=== PATIENT | male | born 1950 | race Caucasian/White ===

== ENCOUNTER 2023-05-14 10:59 | Outpatient (OUT) | payer MEDICARE, SELFPAY ==
--- NOTE | 2023-05-14 11:04 | ECG_ITS ---
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
--- NOTE | 2023-05-14 11:43 | P.GSHP_ITS ---
History of Present Illness History of Present Illness Chief complaint: left hallux rigidus, hammertoes Narrative: Patient presents for preadmission testing. The patient reports a long history of foot pain with toe deformities. Patient states it is worse in his left foot, particularly in the great toe, his pain is worse after certain activities, and the pain is sharp at times. The patient states he doesn't currently take any medications to help his discomfort. He denies numbness, tingling, weakness, or any other complaints. Review of Systems ROS Narrative REVIEW OF SYSTEMS: Negative except as stated in HPI, ten or more systems reviewed. Constitutional: No fever , chills, weakness ENT: No sore throat or epistaxis Cardiovascular: No edema, chest pain, palpitations, or activity intolerance Respiratory: No shortness of breath, cough, or wheezing Gastrointestinal: No abdominal pain, constipation, diarrhea, or vomiting Genitourinary: No dysuria or hematuria Neurological: No numbness, tingling, weakness, or headache Psychiatric: No mood changes PFSH PFSH Medical History (Updated 05/14/23 @ 11:25 by Carol Castellanos NP) Surgical History (Updated 05/14/23 @ 11:47 by Carol Castellanos NP) Family History (Updated 05/14/23 @ 11:24 by Carol Castellanos NP) Other Family history of heart disease Family history of kidney cancer Family history of myocardial infarction Social History (Updated 05/14/23 @ 11:18 by Carol Castellanos NP) Within the past year, how often did you have a drink containing alcohol: monthly or less Smoking status: Never smoker Non-prescribed substance use: denies use Highest level of school completed/degree received: high school graduate Meds Home Medications and Allergies Home Medications Medication Instructions Recorded Confirmed Type aspirin 81 mg tablet,delayed 81 mg PO DAILY 05/14/23 05/14/23 History release (Adult Aspirin Regimen) atorvastatin 20 mg tablet 20 mg PO DAILY 05/14/23 05/14/23 History coenzyme Q10 30 mg capsule (Co 30 mg PO DAILY 05/14/23 05/14/23 History Q-10) hydrochlorothiazide 25 mg tablet 25 mg PO DAILY 05/14/23 05/14/23 History omeprazole 40 mg capsule,delayed 40 mg PO DAILY 05/14/23 05/14/23 History release vitamin A-vitamin C-vit E-min 1 tab PO DAILY 05/14/23 05/14/23 History tablet (Ocutabs tablet) Allergies Allergy/AdvReac Type Severity Reaction Status Date / Time No Known Drug Allergies Allergy Verified 05/14/23 11:17 Exam Narrative Exam Narrative: Constitutional: Awake, alert, comfortable, well-appearing, nontoxic, interactive, vital signs as charted Head: Normocephalic, atraumatic Neck: Supple, normal appearance, normal range of motion, no meningeal signs, no lymphadenopathy Respiratory: No respiratory distress, breath sounds clear Cardiovascular: Regular rate and rhythm, strong and regular heart tones Musculoskeletal: Obvious hallux valgus deformity left great toe, with hammertoes two through five, limited range of motion, good capillary refill, sensation intact Skin: No rashes or induration, no lesions, only visible skin inspected Neuro: No neurological deficits, normal sensation Psychiatric: Oriented ?3, normal affect Assessment and Plan Assessment and Plan (1) Hallux rigidus, left foot: (2) Hammertoe of left foot: Plan Left foot 1st MPJ fusion, hammertoe repair toes two through five, Norma osteotomy of 2nd and possible 3rd metatarsal, tailor's bunionectomy scheduled with Dr. Rainer pardo 05/20/2023.
[2023-05-14 12:39] LABS: Anion Gap 10.4; BUN Creatinine Ratio 24.1; Carbon Dioxide 27.5 mmol/L (21.0-32.0); Chloride 103 mmol/L (98-107); Estimated GFR (African America >60 (>=60); Estimated GFR (Non-African Ame >60 (>=60); Glucose 97 mg/dL (74-106); Potassium 3.9 mmol/L (3.5-5.1); Sodium 137 mmol/L (136-145)
== END 2023-05-14 11:00 | disposition home or self-care (01) ==
PROVIDERS: PCP Internal Medicine; Visit Provider Podiatrist Foot & Ankle Surgery
DX: Z01.818 Encounter for other preprocedural examination (principal); Z01.810 Encounter for preprocedural cardiovascular examination; Z01.812 Encounter for preprocedural laboratory examination; M20.22 Hallux rigidus, left foot; M20.42 Other hammer toe(s) (acquired), left foot; I10 Essential (primary) hypertension
CPT/HCPCS: 36415; 80048; 93005; G0463

== ENCOUNTER 2023-05-20 06:13 | Day surgery (SDC) | payer MEDICARE, SELFPAY ==
[2023-05-14 11:19] VITALS: BP 132/81; PULSE 96; RESP 20; TEMP 36.6; O2SAT 96; BMI 37.4
--- NOTE | 2023-05-20 | XR_ITS ---
The [address] [address] Patient Name: NIYAH DOS SANTOS MRN: [id number] date: 1950 Sex: M Assigned Patient Location: [facility] Current Patient Location: Accession/Order Number: [id number] Exam Date: 05/20/2023 07:15 Report Date: 05/21/2023 09:52 At the request of: KAJAL HOBBS Procedure: XR foot LT 2V PROCEDURE: XR foot LT 2V HISTORY: INTRA OP IMAGING ; first metatarsal phalangeal joint fusion COMPARISON: XR foot left 10/28/2022 FINDINGS: BONES:Multiple intraoperative images demonstrate fusion of the first metatarsophalangeal joint via dorsal plate and screws. Single screw within head of second metatarsal. SOFT TISSUES:Expected intraoperative findings. EFFUSION:None visible. OTHER: Negative. XR/XR foot LT 2V IMPRESSION: 1. Mechanical fusion of the first metatarsophalangeal joint with improved alignment. Electronically authenticated by: JASPREET LUIS Date: 05/21/2023 09:52
[2023-05-20 06:25] LABS: Basophils Percent Auto 0.4 % (0.2-2.0); Eosinophils Absolute Auto 0.2 10^3/uL (0.0-0.7); Eosinophils Percent Auto 2.1 % (0.9-7.0); Hematocrit 45.5 % (42.0-54.0); Hemoglobin 15.3 g/dL (14.0-18.0); Immature Granulocytes Abs Auto 0.03 10^3/uL (0.00-0.03); Immature Granulocytes Pct Auto 0.4 % (0.0-0.5); Lymphocytes Absolute Auto 1.3 10^3/uL (1.2-3.8); Lymphocytes Percent Auto 14.9 % (20.5-60.0); Mean Corpuscular HGB Conc 33.6 g/dL (29.9-35.2); Mean Corpuscular Hemoglobin 30.1 pg (25.9-34.0); Mean Corpuscular Volume 89.6 fL (80.0-94.0); Monocytes Absolute Auto 0.8 10^3/uL (0.3-0.8); Monocytes Percent Auto 9.1 % (1.7-12.0); Neutrophils Absolute Auto 6.3 10^3/uL (1.4-6.5); Neutrophils Percent Auto 73.1 % (43.0-75.0); Platelet Count 183 10^3/uL (150-450); Red Blood Count 5.08 10^6/uL (4.70-6.10); Red Cell Distribution Width 13.2 % (11.0-15.0); White Blood Count 8.5 10^3/uL (4.0-11.0)
[2023-05-20 06:35] LABS: Glucometer 124 mg/dL (74-106)
[2023-05-20 06:38] VITALS: BP 137/71; PULSE 67; RESP 16; TEMP 36.4; O2SAT 97; BMI 37.4
[2023-05-20] MEDS: LACTATED RINGER'S SOLUTION 1,000 ML 50 ML IV ×2 (06:50→08:32)
--- NOTE | 2023-05-20 09:27 | PC.NURSE ---
time out performed as documented. applied 2L O2 via nasal cannula per policy and then positioned per anesthesia. saphineous block beganat 07 and was completed at 0718,popliteal block began at 07 and ended at 07. pt tolerated procedure well. bed in lowest position with siderails up and call light within reach. pts vitals were monitored throughout procedure and will be monitored until pt is taken back to the OR.
--- NOTE | 2023-05-20 10:25 | XR_ITS ---
The [address] [address] Patient Name: NIYAH DOS SANTOS MRN: [id number] date: 1950 Sex: M Assigned Patient [facility] Current Patient Location: [facility] Accession/Order Number: [id number] Exam Date: 05/20/2023 11:00 Report Date: 05/21/2023 09:58 At the request of: DOMINIQUE SAN Procedure: XR foot LT min 3V PROCEDURE: XR foot LT min 3V HISTORY: post-op first metatarsophalangeal joint fusion COMPARISON: XR foot left 05/20/2023 intraoperative images FINDINGS: BONES:Improved alignment and mechanical fusion of first metatarsophalangeal joint via dorsal plate and screws. Single screw within second metatarsal head. No hardware fracture or bone fracture. SOFT TISSUES:Mild soft tissue swelling. Images were obtained through cast material. EFFUSION:None visible. OTHER: Negative. XR/XR foot LT min 3V IMPRESSION: 1. Stable surgical changes of left foot without evidence of hardware failure or change in alignment compared to intraoperative images. Electronically authenticated by: JASPREET LUIS Date: 05/21/2023 09:58
[2023-05-20 10:54] VITALS: BP 141/86; PULSE 85; RESP 11; TEMP 37.1; O2SAT 93
[2023-05-20 11:11] LABS: Glucometer 151 mg/dL (74-106)
--- NOTE | 2023-05-20 11:16 | PC.NURSE ---
PATIENT IS AWAKE AND TOES ARE PINK AND WARN, HE CAN NOT FEEL HIS TOES.
[2023-05-20 11:23] VITALS: BP 134/90; PULSE 63; RESP 16; O2SAT 94
--- NOTE | 2023-05-20 11:45 | PC.NURSE ---
TOES ARE WARM AND PINK. PATIENT DENIES ANY PAIN AT THIS TIME.
[2023-05-20 11:53] VITALS: BP 136/79; PULSE 79; RESP 18; O2SAT 95
--- NOTE | 2023-05-20 11:58 | PC.NURSE ---
PATIENT IS CURRENTLY UP IN A CHAIR WITH FOOT ELEVATED ON PILLOW WITH ICE PACK UNDERNEATH IT. PATIENT DENIES PAIN AND IS TOLERATING SITTING IN CHAIR VERY WELL.
[2023-05-20 12:23] VITALS: BP 134/78; PULSE 69; RESP 18; O2SAT 94
--- NOTE | 2023-05-20 13:25 | P.ORON_ITS ---
Brief Operative Note Date of procedure: 05/20/23 Pre-op diagnosis: Left HAV, hammertoes, tailor's bunion Post-op diagnosis: other (left hallux valgus, hammertoes 2-5, pre-dislocation syndrome 2nd metatarsal phalangeal joint, subluxation of 2nd and 3rd metatarsal phalangeal joints, tailor's bunion) Procedure: procedure performed: Left 1st metatarsal phalangeal joint fusion, Norma osteotomy 2nd metatarsal, tailors bunionectomy, correction of hammertoes with PIPJ ar throplasty of toes 2, 3, 4 & 5; extensor tendon lengthening of 2nd & 3rd metatarsal phalangeal joints; application of short leg splint, intraoperative fluoroscopy examination intraoperative findings: consistent with diagnosis of severe hallux valgus with mild to moderate arthritis of 1st metatarsophalangeal joint. Severe contractures of the 2nd and 3rd toes leading to subluxation dorsally of metatarsal phalangeal joints. Rigid contractures at PIPJ's of toes two through five. Bone quality within normal limits PROCEDURE IN DETAIL: Patient was identified in pre op and consent was reviewed. Correct side and site were identified and marked. Pre-op antibiotics were started. Patient was brought to OR suite and place on table in a supine position. General anesthesia was administered. A tourniquet was applied. Operative extremity was prepped and draped in usual sterile fashion. Formal time-out was performed and the foot/ankle were exsanguinated and tourniquet inflated. Incision created over dorsal aspect of the 1st MPJ. Bleeders coagulated. EHL protected throughout the procedure. Capsulotomy performed and McGlammry elevator inserted into 1st MPJ. Guide Pin place in 1st metatarsal head. Conical reamers used on 1st metatarsal head to remove cartilage and subchondral bone. Guide pin removed. Conical reamers used on proximal phalanx in a similar manner. 2.0 mm drill used to on each side of the joint. The site was irrigated. 1cc of bone allograft (Sparc) was then packed into the fusion site. A stab incision was placed on the medial aspect of the hallux and blunt dissection down to the proximal phalanx base was performed. A guide wire was then used to pin the MPJ in a rectus position under fluoroscopic guidance. then an additional stab incision was placed on the lateral aspect of the hallux and blunt dissection was taken down to bone followed by a 2nd guidewire placed crossing the 2nd. Position was checked both on the table and under fluoroscopy. A saw was used to contour the dorsal aspect of the 1st metatarsal and proximal phalanx to accommodate plate fixation. A 3.[address] was place over the fusion site and temporarily fixed. Then company pilot holes were drilled for locking 3.5 mm screws which were measured and placed according to the manufactor's standard directions. Again position was checked under fluoroscopy as well as on the table. Temporary fixation was removed and additional screws were placed. 3.5 mm cannulated headed screws were inserted over the previously placed guide wires accordingly. Again position of the great toe and hardware placement were checked on the table and under fluoroscopy. The surgical site was irrigated with copious amounts of sterile saline. A dorsal incision over the 2nd digit and extended over the 2nd metatarsal was undertaken. They show sharp and blunt dissection gained access to the proximal phalanx head which was exposed and then removed with the sagittal saw. The extensor tendon was protected throughout the procedure and sharp and blunt dissection exposed the 2nd metatarsal phalangeal joint. A McGlammry elevator was utilized to expose the 2nd metatarsal head and a sagittal saw was used to create an osteotomy parallel to the weightbearing surface of the foot. The metatarsal head was then translated proximally and temporarily fixated with a K wire and the elevator was removed. Position was checked under fluoroscopy followed by a 2.0 mm snap off screw which was placed from a dorsal plantar direction. A rongeur was used to remove the dorsal cortical shelf. Temporary fixation was removed. Surgical site was irrigated with copious amounts of sterile saline. With attention to the 3rd digit a dorsal incision was created over the PIPJ. Sharp and blunt dissection down to the extensor tendon was performed. The tendon was incised transversely then reflected proximally. A sagittal saw was used to remove the proximal phalanx head. The site was flushed with sterile saline. With attention to the 4th digit a dorsal incision was created over the PIPJ. Sharp and blunt dissection down to the extensor tendon was performed. The tendon was incised transversely then reflected proximally. A sagittal saw was used to remove the proximal phalanx head. The site was flushed with sterile saline. With attention to the 5th digit a semi-elliptical dorsal incision was created over the PIPJ. Sharp and blunt dissection down to the extensor tendon was performed. The tendon was incised transversely then reflected proximally. A sagittal saw was used to remove the proximal phalanx head. The site was flushed with sterile saline. The tendons of 4th and 5th toes were repaired with absorbable suture. incision over the dorsal lateral aspect of the 5th metatarsophalangeal joint was performed comminution sharp and blunt dissection gained access to the joint and capsulotomy was performed exposing the lateral eminence of the 5th metatarsal. The osseous prominence was then removed with a sagittal saw then contoured with a hand rasp. Surgical site was irrigated with copious saline and the incision was closed in layers. The incisions from the 4th and 5th toes were also closed in layers as well as the incision of the 1st MPJ fusion after irrigation of all surgical sites. Attempt was made to directly repair the extensor tendons of the 2nd and 3rd toes however direct repair would have placed dorsal contracture on the toes therefore each tendon was lengthened in a Z fashion then repaired with absorbable suture. Surgical sites were irrigated copiously saline and incisions were closed in layers. Fluoroscopy confirmed correction of forefoot deformities and proper hardware placement. The tourniquet was deflated and a prompt hyperemic response was noted. A dry sterile dressing consisting of Xeroform on the incisions followed by 4 x 4 gauze, ABDs, and Kerlix were applied. Multiple layers of cast padding were then applied to ensure all bony prominences were well-padded. A plaster posterior splint was then applied which was held in place by Leobardo wraps. Capillary refill time to all digits was evaluated and had appropriate response. POSTOPERATIVE PLAN: Discharge home under family's care Post op instructions provided verbally and written prescription(s) were placed in chart NWB operative foot/ankle x_1_ wks Follow-up in 1 week Implants: Medline Anesthesia: other (general & regional) Surgeon: Yong Sanchez Behavioral Analyst: Won Villasenor Estimated blood loss (mL): 10 Pathology: none sent Condition: stable Disposition: PACU
== END 2023-05-20 12:23 | disposition home or self-care (01) ==
PROVIDERS: Anesthesiology; PCP Internal Medicine; Visit Provider Podiatrist Foot & Ankle Surgery
PROC: (CPT 28110; principal; 2023-05-20 07:30)
DX: M20.12 Hallux valgus (acquired), left foot (principal); M20.42 Other hammer toe(s) (acquired), left foot; M21.622 Bunionette of left foot; M25.872 Other specified joint disorders, left ankle and foot; M20.22 Hallux rigidus, left foot; M20.5X2 Other deformities of toe(s) (acquired), left foot; Z79.82 Long term (current) use of aspirin; Z79.899 Other long term (current) drug therapy; Z87.891 Personal history of nicotine dependence
CPT/HCPCS: 28110; 28208; 28234; 28285 ×4; 28308; 28750; 36415; 64445; 64450; 73620; 73630; 76000; 76942; 82948; 85025; C1713; J2704

== ENCOUNTER 2023-06-01 15:55 | Emergency (ER) | payer MEDICARE, SELFPAY ==
[2023-06-01 16:08] VITALS: BMI 25.8
--- NOTE | 2023-06-01 16:27 | ED_ITS ---
HPI - General Adult General Chief complaint: Cardiac Arrest/CPR Stated complaint: OTHER Time Seen by Provider: 06/01/23 16:10 Source: family and other Source information: ems staff Mode of arrival: ambulance Limitations: other Limitations comment: full arrest History of Present Illness HPI narrative: Patient is a 73-year-old male who is presenting to the Emergency Room in cardiopulmonary arrest. Patient has a history of cholesterol, acid reflux, but overall is rather healthy. Patient lives at home with his . Patient exercises often and works at [employer]. Patient had a surgery approximately [address] Sanchez on his left foot. Patient was somewhat inactivity for surgery and after surgery. Patient was so happy because today he has been placed in a walking boot and is able to start moving around more. Patient has no cardiac history that we are aware of. No blood clot history where aware. Patient went to podiatry office today and was placed in a walking member. Patient went home and was feeling very lightheaded, dizzy, and had several episodes of nausea and bilious vomiting. Patient had fallen on the floor, no other blood thinners that we are aware of. Patient's wanted to call 911, patient did not want the ambulance called. Patient was able to scoot on the floor and get up into a chair. this occurred approximately 12:30 PM. Patient patient was tired, he had taken a nap. prior to arrival, patient was able to get up out of the chair and was walking, patient's was in the bedroom. Patient started gasping for air and was having a very difficult time breathing. Patient was sat in a chair with help, and then patient became unresponsive. EMS and arrives. Patient had questionable rhythm per EMS. Please refer to the EMS documentation, is unclear what or if any intervention occurred prior to arrival. I met the patient and EMS In the ambulance bay... No CPR was in place. Once patient was removed from the ambulance, I asked EMS paramedics if they had captured ROSC Or does he have a pulse or what rhythm is the patient in, and they stated no. EMS stated that the Patient had no shockable rhythm. I felt eliane harrison's carotid pulse which was not present. Eye started CPR in the ambulance bay while we were transporting patient into room 5. I started one-handed CPR on this patient As I was trying to assist with transferring patient into the room and holding his right arm because it was falling off the cart and on the ground. He was brought in quickly into room 5 where ACLS measures were quickly in place. Nurse Alberta VANCE relieved me, and got up on the bed immediately and started CPR. no IV or IO was established. There is no bag valve mask in place by EMS staff, it does not appear the patient is breathing, EMS staff reported that he had been gasping for air. . All systems are negative except as noted/marked. . Nurses note and vital signs reviewed and patient is not hypoxic. General: The patient arrived in cardiopulmonary arrest. patient is wearing a walking boot to the left foot/ankle. Skin: cool, slightly mottled. There is no rash noted. No petechiae, purpura. Head: Normocephalic, atraumatic Eye: pupils are fixed and dilated, 6 mm bilateral. Ears, Nose, Mouth, and Throat: oral mucosa is dry Cardiovascular: no pulse, no heartbeat her initially Respiratory: patient is cardiopulmonary arrest, assistance with breathing was done by bag, valve, mass Has started in room 5. GI: soft, mild distention, Neurological: A&O x0, GCS 3 Related Data Home Medications Medication Instructions Recorded Confirmed aspirin 81 mg tablet,delayed 81 mg PO DAILY 05/14/23 05/20/23 release (Adult Aspirin Regimen) atorvastatin 20 mg tablet 20 mg PO DAILY 05/14/23 05/20/23 coenzyme Q10 30 mg capsule (Co 30 mg PO DAILY 05/14/23 05/20/23 Q-10) hydrochlorothiazide 25 mg tablet 25 mg PO DAILY 05/14/23 05/20/23 omeprazole 40 mg capsule,delayed 40 mg PO DAILY 05/14/23 05/20/23 release vitamin A-vitamin C-vit E-min 1 tab PO DAILY 05/14/23 05/20/23 tablet (Ocutabs tablet) Previous Rx's Medication Instructions Recorded alendronate 70 mg tablet (Fosamax) 70 mg PO QWEEK fusion 12 weeks #12 05/20/23 tabs cefadroxil 500 mg capsule 500 mg PO BID 10 days #20 caps 05/20/23 cholecalciferol (vitamin D3) 50 50 mcg PO QDAY 3 months #90 [facility] 05/20/23 mcg (2,000 unit) capsule (Vitamin D3) ondansetron 4 mg disintegrating 4 mg PO QDAY PRN nausea and 05/20/23 tablet vomiting 3 days #6 tabs sennosides 8.6 mg tablet (senna) 8.6 mg PO BID PRN constipation 3 05/20/23 days #6 tabs Allergies Allergy/AdvReac Type Severity Reaction Status Date / Time No Known Drug Allergies Allergy Verified 05/14/23 11:17 [facility] Medical History (Updated 05/14/23 @ 11:25 by Carol Castellanos NP) Surgical History (Updated 05/14/23 @ 11:47 by Carol Castellanos NP) Family History (Updated 05/14/23 @ 11:24 by Carol Castellanos NP) Other Family history of heart disease Family history of kidney cancer Family history of myocardial infarction Social History (Updated 05/14/23 @ 11:18 by Carol Castellanos NP) Within the past year, how often did you have a drink containing alcohol: monthly or less Smoking status: Never smoker Non-prescribed substance use: denies use Highest level of school completed/degree received: high school graduate Exam Constitutional Vital Signs, click to edit/add: Last Vital Signs O2 Del Method Ambu Bag 06/01/23 16:08 Course Vital Signs Vital signs: Vital Signs Oxygen Delivery Method Ambu Bag 06/01/23 16:08 Oxygen Delivery Method Ambu Bag 06/01/23 16:08 Discharge Plan Discharge Patient Disposition: Date/Time: 06/01/23 16:05 Discharge Date/Time: 06/01/23 18:36 Procedures ED Procedure Instructions Procedures Procedures: procedure note. Procedure done by . intubation. patient was preoxygenated with [id number], A 4-0 Mac blade was used. Patient's dentition are intact. A 8.0 ET tube was used. The balloon was checked with 10 cc of air prior to use. There are no holes in the balloon. Vocal cords were visualized. The ET tube was visualized passing through the vocal cords I thought initially but there is no good color exchange and patient had no breath sounds bilateral. Patient had bag valve mask for respirations continue, I then was able to use a bougie and intubate the patient successfully, 22 cm at the teeth . Patient had good color change on capnometer. Patient had equal breath sounds bilateral, good condensation in the ET tube. The ET tube was secured at 22cm at the teeth. Patient tolerated the procedure well without difficulty, no trauma was induced. dentition remained intact. Postintubation chest x-ray was done secondary to cardiopulmonary arrest and patient never had a sustainable ROSC. Procedure note: bedside cardiiac ultrasound was performed by Dr. Gray. Cardiac window was here, patient had no cardiac activity visualized by ultrasound, patient was pronounced .1605. patient was given 4 rounds of epinephrine, a dose of atropine, a dose of bicarbonate. Patient had IO established. IV fluids were running. Please see ACLS code sheet. Patient's had arrived, I had spoken to the patient's in the lobby and then brought her back into the room. I performed ultrasound the patient's hard after multiple rounds of ACLS resuscitative efforts were done. Ultrasound showed no cardiac activity, patient was pronounced at 1605. I have spoken to Dr. moore, he is going to sign certificate. Dr. moore stated that this patient is rather healthy, only sees him in the office once a year, has cholesterol history but no other significant medical history. I spoke to Dr. 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 I have spent over 60 minutes talking to multiple various family members of this patient until patient had left with the corner team. Patient has been extremely nice, very thankful, multiple updates have been given to multiple different family members, greater than 10?12 people have been in the Emergency Room. Critical care time >85 minutes exclusive from separate billable procedures that were performed. The following was considered in the determination of critical c are but not limited to the level of medical decision making, intensive cardiac and/or respiratory monitoring, frequent vital sign monitoring, evaluation of laboratory studies, evaluation of radiographic studies, oxygen monitoring, and constant monitoring and speaking to family at bedside
== END 2023-06-01 18:36 | disposition expired ==
PROVIDERS: Emergency Provider Emergency Medicine; PCP Internal Medicine
DX: I46.9 Cardiac arrest, cause unspecified (principal); E78.00 Pure hypercholesterolemia, unspecified; K21.9 Gastro-esophageal reflux disease without esophagitis; Z79.899 Other long term (current) drug therapy; Z79.82 Long term (current) use of aspirin
CPT/HCPCS: 31500; 92950; 96374; 96375; 96376; 99285